=== PATIENT | female | born 1960 | race Caucasian/White ===

== ENCOUNTER 2017-03-29 23:52 | Emergency (ER) | payer OTHER ==
[~2017-03-29] VITALS: Ht 170.2 cm; Wt 114.8 kg
[2017-03-30 00:24] VITALS: BP_SYST 155
[2017-03-30] MEDS ORDERED: GLIP10TA74 PO (00:58)
[2017-03-30] MEDS ORDERED: ASPI-1063 PO (00:59)
[2017-03-30] MEDS ORDERED: METF1000 PO ×2 (01:00→01:01)
[2017-03-30] MEDS ORDERED: NIAC1CAP PO (01:02)
[2017-03-30] MEDS ORDERED: OMEG10006 PO (01:03)
[2017-03-30] MEDS ORDERED: SIMV40TA5 PO (01:04)
[2017-03-30] MEDS ORDERED: CHOL500013 PO (01:04)
[2017-03-30] MEDS ORDERED: DULA0.75 SQ (01:05)
[2017-03-30] MEDS ORDERED: NACL 0.9% 1,000 ML IV ONE (01:19)
[2017-03-30] MEDS ORDERED: ONDANSETRON HCL 4 MG/2 ML VIAL IVP ONE (01:30)
[2017-03-30 01:46] LABS: BASOPHILS # (AUTO) 0.1 K/uL (0.0-0.2); BASOPHILS % (AUTO) 0.9 % (0.0-2.0); EOSINOPHILS # (AUTO) 0.3 K/uL (0.0-0.4); EOSINOPHILS % (AUTO) 5.1 % (0.0-4.0); HEMATOCRIT 35.3 % (36-48); HEMOGLOBIN 12.2 g/dL (12.0-16.0); LYMPHOCYTES # (AUTO) 1.5 K/uL (1.0-5.5); LYMPHOCYTES % (AUTO) 22.1 % (20.5-51.5); MEAN CORPUSCULAR HEMOGLOBIN 31 pg (27-31); MEAN CORPUSCULAR HGB CONC 35 % (32-36); MEAN CORPUSCULAR VOLUME 90 fL (79.0-98.0); MONOCYTES # (AUTO) 0.6 K/uL (0.0-1.0); MONOCYTES % (AUTO) 8.8 % (1.7-9.3); NEUTROPHILS # (AUTO) 4.2 K/uL (1.8-7.7); NEUTROPHILS % (AUTO) 63.1 % (40.0-70.0); PLATELET COUNT (AUTO) 224 K/uL (130-430); RED BLOOD CELL COUNT(AUTO) 3.94 MIL/uL (4.2-6.2); RED CELL DISTRIBUTION WIDTH 13.2 % (9.0-15.0); WHITE BLOOD COUNT (AUTO) 6.7 K/uL (4.8-10.8)
[2017-03-30 01:50] LABS: CALCIUM 10.4 mg/dL (8.4-11.0); CREATININE 1.5 mg/dL (0.55-1.30); POTASSIUM 4.2 mmol/L (3.5-5.1)
[2017-03-30 01:59] LABS: ALBUMIN 3.4 g/dL (3.4-4.8); BILIRUBIN,URINE NEGATIVE (NEGATIVE); BLOOD, URINE NEGATIVE (NEGATIVE); CLARITY/URINE CLEAR (CLEAR); COLOR,URINE YELLOW (YELLOW); GLUCOSE,URINE 3+ (NEGATIVE); KETONES,URINE NEGATIVE (NEGATIVE); LEUKOCYTE ESTERASE ,URINE NEGATIVE (NEGATIVE); NITRITE, URINE POSITIVE (NEGATIVE); PH,URINE 5.5 (5.0-8.0); PROTEIN URINE NEGATIVE (NEGATIVE); TOTAL BILIRUBIN 0.7 mg/dL (0.0-1.0); UROBILINOGEN,URINE 0.2 (0.2-1.0)
[2017-03-30 02:05] LABS: BACTERIA,URINE MANY /HPF (None Seen); MUCUS,URINE None Seen /LPF (None Seen); RBC,URINE 0-3 /HPF (0-3); WBC,URINE 20-50 /HPF (0-3)
[2017-03-30] MEDS ORDERED: SULFAMETHOXAZOLE/TRIMETHOPR DS 1 TABLET PO ONE (03:15)
[2017-03-30 03:28] VITALS: BP_SYST 132
== END 2017-03-30 03:28 | disposition home or self-care (01) ==
LOC: SED 23:52
DX: R10.9 Unspecified abdominal pain (principal); R11.0 Nausea; R63.0 Anorexia; E11.9 Type 2 diabetes mellitus without complications; I10 Essential (primary) hypertension; J45.909 Unspecified asthma, uncomplicated; E78.5 Hyperlipidemia, unspecified; Z85.528 Personal history of other malignant neoplasm of kidney; Z79.899 Other long term (current) drug therapy
CPT/HCPCS: 36415; 74176; 80053; 81000; 83690; 85025; 87086; 87186; 93005; 96361; 96374; 99285; J2405; J7030

== ENCOUNTER 2017-11-19 02:43 | Emergency (ER) | payer OTHER ==
[~2017-11-19] VITALS: Ht 170.2 cm; Wt 111.1 kg
[2017-11-19 02:43] VITALS: BP_SYST 132
[~2017-11-19 02:43] MED LIST: ASPI-1063 PO; CHOL500013 PO; CIPR-172 PO; GLIP10TA74 PO; NIAC1CAP PO; OMEG10006 PO; SIMV40TA5 PO
[2017-11-19 03:38] LABS: BASOPHILS # (AUTO) 0.1 K/uL (0.0-0.2); EOSINOPHILS # (AUTO) 0.3 K/uL (0.0-0.4); EOSINOPHILS % (AUTO) 3.2 % (0.0-4.0); HEMATOCRIT 33.8 % (36-48); HEMOGLOBIN 11.3 g/dL (12.0-16.0); LYMPHOCYTES % (AUTO) 29.4 % (20.5-51.5); MEAN CORPUSCULAR HEMOGLOBIN 31 pg (27-31); MEAN CORPUSCULAR HGB CONC 34 % (32-36); MEAN CORPUSCULAR VOLUME 92 fL (79.0-98.0); MONOCYTES # (AUTO) 0.7 K/uL (0.0-1.0); MONOCYTES % (AUTO) 6.5 % (1.7-9.3); NEUTROPHILS # (AUTO) 6.3 K/uL (1.8-7.7); NEUTROPHILS % (AUTO) 59.9 % (40.0-70.0); PLATELET COUNT (AUTO) 292 K/uL (130-430); RED BLOOD CELL COUNT(AUTO) 3.66 MIL/uL (4.2-6.2); RED CELL DISTRIBUTION WIDTH 12.9 % (9.0-15.0); WHITE BLOOD COUNT (AUTO) 10.4 K/uL (4.8-10.8)
[2017-11-19 03:50] LABS: BILIRUBIN,URINE 1+ (NEGATIVE); BLOOD, URINE NEGATIVE (NEGATIVE); CLARITY/URINE CLEAR (CLEAR); COLOR,URINE YELLOW (YELLOW); GLUCOSE,URINE 1+ (NEGATIVE); KETONES,URINE NEGATIVE (NEGATIVE); LEUKOCYTE ESTERASE ,URINE NEGATIVE (NEGATIVE); NITRITE, URINE NEGATIVE (NEGATIVE); PROTEIN URINE 1+ (NEGATIVE); UROBILINOGEN,URINE 0.2 (0.2-1.0)
[2017-11-19 03:52] LABS: CALCIUM 9.8 mg/dL (8.4-11.0); CREATININE 2.61 mg/dL (0.55-1.30); POTASSIUM 3.3 mmol/L (3.5-5.1)
[2017-11-19 03:54] LABS: BACTERIA,URINE FEW /HPF (None Seen); MUCUS,URINE None Seen /LPF (None Seen); RBC,URINE 0-3 /HPF (0-3)
[2017-11-19 03:57] LABS: ALBUMIN 3.8 g/dL (3.4-4.8); TOTAL BILIRUBIN 0.8 mg/dL (0.0-1.0)
[2017-11-19] MEDS ORDERED: POTASSIUM CHLORIDE 20 MEQ/PKT PACKET PO ONE (04:30)
[2017-11-19] MEDS ORDERED: LACTULOSE 20 GM/30 ML UDC PO ONE (05:30)
[2017-11-19 05:45] VITALS: BP_SYST 127
== END 2017-11-19 05:45 | disposition home or self-care (01) ==
LOC: SED 02:43
DX: K59.00 Constipation, unspecified (principal); E87.6 Hypokalemia; I12.0 Hypertensive chronic kidney disease with stage 5 chronic kidney disease or end stage renal disease; E11.22 Type 2 diabetes mellitus with diabetic chronic kidney disease; N18.6 End stage renal disease; J45.909 Unspecified asthma, uncomplicated; E78.5 Hyperlipidemia, unspecified; Z85.53 Personal history of malignant neoplasm of renal pelvis; Z99.2 Dependence on renal dialysis; Z90.5 Acquired absence of kidney
CPT/HCPCS: 36415; 74018; 80053; 81000-TC; 85025; 99285

== ENCOUNTER 2017-12-03 07:50 | Inpatient (IN) | payer OTHER ==
[~2017-12-03] VITALS: Ht 170.2 cm; Wt 109.8 kg
[2017-12-03 07:55] VITALS: BP_SYST 94
[2017-12-03] MEDS ORDERED: LISI40TA4 PO (08:06)
[2017-12-03] MEDS ORDERED: GABA-531 PO (08:06)
[2017-12-03] MEDS ORDERED: ACETAMINOPHEN 500 MG TABLET PO ONE (08:15)
[2017-12-03] MEDS ORDERED: LEVOFLOXACIN 500 MG/D5W 100 ML IV ONE (08:15)
[2017-12-03] MEDS ORDERED: IBUP-1969 PO (08:17)
[2017-12-03] MEDS ORDERED: TRAM50TA92 PO (08:17)
[2017-12-03] MEDS ORDERED: ALBU8.5H8 INH (08:17)
[2017-12-03] MEDS ORDERED: ONDA4TAB5 PO (08:17)
[2017-12-03] MEDS ORDERED: CYCL-365 PO (08:17)
[2017-12-03] MEDS ORDERED: DET2 PO (08:17)
[2017-12-03] MEDS ORDERED: INSU300I SQ (08:18)
[2017-12-03 08:31] LABS: BASOPHILS # (AUTO) 0.1 K/uL (0.0-0.2); BASOPHILS % (AUTO) 1.5 % (0.0-2.0); HEMATOCRIT 30.6 % (36-48); HEMOGLOBIN 10.2 g/dL (12.0-16.0); LYMPHOCYTES # (AUTO) 0.3 K/uL (1.0-5.5); LYMPHOCYTES % (AUTO) 4.1 % (20.5-51.5); MEAN CORPUSCULAR HEMOGLOBIN 31 pg (27-31); MEAN CORPUSCULAR HGB CONC 33 % (32-36); MEAN CORPUSCULAR VOLUME 91 fL (79.0-98.0); MONOCYTES # (AUTO) 0.3 K/uL (0.0-1.0); MONOCYTES % (AUTO) 3.4 % (1.7-9.3); NEUTROPHILS # (AUTO) 7.1 K/uL (1.8-7.7); PLATELET COUNT (AUTO) 159 K/uL (130-430); RED BLOOD CELL COUNT(AUTO) 3.35 MIL/uL (4.2-6.2); RED CELL DISTRIBUTION WIDTH 13.7 % (9.0-15.0); WHITE BLOOD COUNT (AUTO) 7.8 K/uL (4.8-10.8)
[2017-12-03 08:37] LABS: ANION GAP 12 (5-15); CALCIUM 8.7 mg/dL (8.4-11.0); CHLORIDE 93 mmol/L (98-107); CREATININE 1.98 mg/dL (0.55-1.30); GLUCOSE 355 mg/dL (70-99); INR 1.2 (0.8-1.2); POTASSIUM 3.3 mmol/L (3.5-5.1); PROTHROMBIN TIME 11.8 SECS (9.5-12.5); SODIUM SERUM 129 mmol/L (136-145); UREA NITROGEN, BLOOD 19 mg/dL (8-21)
[2017-12-03 08:39] LABS: GFR AFRICAN AMERICAN 33 mL/min (>90)
[2017-12-03 08:53] LABS: ALANINE AMINOTRANSFERASE 28 U/L (12-78); ALBUMIN 2.9 g/dL (3.4-4.8); ASPARTATE AMINOTRANSFERASE 46 U/L (10-37); FREE T4 (FREE THYROXINE) 1.5 ng/dL (0.6-1.6); TOTAL BILIRUBIN 1.7 mg/dL (0.0-1.0)
[2017-12-03 08:54] LABS: ALCOHOL, BLOOD < 3 mg/dL (<10)
[2017-12-03 09:18] LABS: BILIRUBIN,URINE NEGATIVE (NEGATIVE); CLARITY/URINE CLEAR (CLEAR); COLOR,URINE YELLOW (YELLOW); GLUCOSE,URINE 2+ (NEGATIVE); KETONES,URINE NEGATIVE (NEGATIVE); LEUKOCYTE ESTERASE ,URINE NEGATIVE (NEGATIVE); NITRITE, URINE NEGATIVE (NEGATIVE); PH,URINE 6.5 (5.0-8.0); PROTEIN URINE 2+ (NEGATIVE)
[2017-12-03 09:21] LABS: BLOOD, URINE TRACE (NEGATIVE)
[2017-12-03 09:27] LABS: BACTERIA,URINE FEW /HPF (None Seen); MUCUS,URINE 1+ /LPF (None Seen); RBC,URINE 0-3 /HPF (0-3); WBC,URINE 0-3 /HPF (0-3)
[2017-12-03 09:36] LABS: BARBITURATE, URINE NEGATIVE (NEG <=200); BENZODIAZEPINE, URINE NEGATIVE (NEG <=150); CANNABINOID, URINE NEGATIVE (NEG <=50); COCAINE, URINE NEGATIVE (NEG <=150); METHAMPHETAMINES SCREEN,URINE NEGATIVE (NEG <=500); OPIATE, URINE NEGATIVE (NEG <=100); PHENCYCLIDINE SCREEN,URINE NEGATIVE (NEG <=25); UR TRICYCLIC ANTIDEPRESSANTS NEGATIVE (NEG <=300); URINE AMPHETAMINE NEGATIVE (NEG <=500); URINE METHADONE NEGATIVE (NEG <=200); URINE OXYCODONE SCREEN NEGATIVE (NEG <=100); URINE PROPOXYPHENE SCREEN NEGATIVE (NEG <=300)
[2017-12-03] MEDS ORDERED: POTASSIUM CHLORIDE 20 MEQ TAB.PRT.SR PO ONE (09:45)
[2017-12-03] MEDS ORDERED: cefTRIAXone 1 GM IVPB PREMIX 50 ML IV ONE (10:15)
[2017-12-03] MEDS ORDERED: VANCOMYCIN HCL 1,000 MG in NS 250 ML IV ONE (10:15)
[2017-12-03] MEDS ORDERED: ACETAMINOPHEN 325 MG TABLET PO ONE (10:15)
[2017-12-03 11:00] VITALS: BP_SYST 99
[2017-12-03] MEDS ORDERED: FLUT16SP16 NS (12:17)
[2017-12-03] MEDS: MORPHINE 4 MG/ML INJ. SYRINGE IVP PRN ×3 (12:26→23:45)
[2017-12-03] MEDS ORDERED: FLUTICASONE PROPIONATE 50 mCg/SPRAY 16 GM NS ONE (13:00)
[2017-12-03] MEDS ORDERED: NIACIN 500 MG TABLET.SA PO ONE (13:00)
[2017-12-03 16:13] VITALS: BP_SYST 103
[2017-12-03] MEDS: INSULIN ASPART 100 UNITS/ML, 10 ML VIAL (NovoLOG) SUBCUT PRN ×2 (18:26→22:16)
[2017-12-03] MEDS ORDERED: DEXTROSE 50%-WATER 50 ML DISP.SYRIN IVP PRN ×2 (18:30)
[2017-12-03] MEDS ORDERED: GLUCOSE 15 GM GEL (in 37.5 GM TUBE) PO PRN ×2 (18:30)
[2017-12-03 19:10] VITALS: BP_SYST 115
[2017-12-03] MEDS: ONDANSETRON 4 MG ODT TAB PO PRN (19:36)
[2017-12-03] MEDS ORDERED: INSULIN GLARGINE HUM REC ANLOG 75 UNIT SQ SCH (21:00)
[2017-12-03] MEDS: SIMVASTATIN 40 MG TABLET PO SCH (22:14)
[2017-12-03] MEDS: ASPIRIN 81 MG TABLET(ECOTRIN) PO SCH (22:14)
[2017-12-04 00:50] VITALS: BP_SYST 101
[2017-12-04] MEDS: INSULIN ASPART 100 UNITS/ML, 10 ML VIAL (NovoLOG) SUBCUT PRN ×4 (06:04→22:28)
[2017-12-04] MEDS: MORPHINE 4 MG/ML INJ. SYRINGE IVP PRN ×4 (06:05→20:14)
[2017-12-04 07:07] LABS: BASOPHILS % (AUTO) 0.5 % (0.0-2.0); EOSINOPHILS % (AUTO) 0.7 % (0.0-4.0); HEMOGLOBIN 8.8 g/dL (12.0-16.0); LYMPHOCYTES # (AUTO) 0.6 K/uL (1.0-5.5); LYMPHOCYTES % (AUTO) 11.6 % (20.5-51.5); MEAN CORPUSCULAR HEMOGLOBIN 32 pg (27-31); MEAN CORPUSCULAR HGB CONC 34 % (32-36); MEAN CORPUSCULAR VOLUME 94 fL (79.0-98.0); MONOCYTES # (AUTO) 0.3 K/uL (0.0-1.0); MONOCYTES % (AUTO) 6.5 % (1.7-9.3); NEUTROPHILS # (AUTO) 4.1 K/uL (1.8-7.7); NEUTROPHILS % (AUTO) 80.7 % (40.0-70.0); PLATELET COUNT (AUTO) 113 K/uL (130-430); RED BLOOD CELL COUNT(AUTO) 2.77 MIL/uL (4.2-6.2); RED CELL DISTRIBUTION WIDTH 13.5 % (9.0-15.0)
[2017-12-04 07:23] LABS: ALBUMIN 2.4 g/dL (3.4-4.8); CALCIUM 8.3 mg/dL (8.4-11.0); CREATININE 2.01 mg/dL (0.55-1.30); POTASSIUM 3.6 mmol/L (3.5-5.1); TOTAL BILIRUBIN 0.9 mg/dL (0.0-1.0)
[2017-12-04 08:11] VITALS: BP_SYST 117
[2017-12-04] MEDS: NIACIN 500 MG TABLET.SA PO SCH (08:18)
[2017-12-04] MEDS: FLUTICASONE PROPIONATE 50 mCg/SPRAY 16 GM NS SCH (08:19)
[2017-12-04] MEDS: ONDANSETRON 4 MG ODT TAB PO PRN (10:58)
[2017-12-04 11:31] VITALS: BP_SYST 112
[2017-12-04] MEDS ORDERED: VANCOMYCIN HCL 1,250 MG in NS 250 ML IV SCH (14:00)
[2017-12-04 15:38] VITALS: BP_SYST 119
[2017-12-04] MEDS ORDERED: *CUBICIN 6 MG/KG Q48H/PHARMACY XX PRN (17:30)
[2017-12-04 20:00] VITALS: BP_SYST 105
[2017-12-04] MEDS: ASPIRIN 81 MG TABLET(ECOTRIN) PO SCH (21:41)
[2017-12-04] MEDS: SIMVASTATIN 40 MG TABLET PO SCH (21:41)
[2017-12-04] MEDS: DAPTOmycin 650 MG in NS 50 ML IV SCH (21:42)
[2017-12-05 00:08] VITALS: BP_SYST 100
[2017-12-05 07:10] LABS: CALCIUM 8.8 mg/dL (8.4-11.0); CREATININE 1.82 mg/dL (0.55-1.30); POTASSIUM 3.2 mmol/L (3.5-5.1)
[2017-12-05] MEDS: NIACIN 500 MG TABLET.SA PO SCH (08:24)
[2017-12-05] MEDS: FLUTICASONE PROPIONATE 50 mCg/SPRAY 16 GM NS SCH (08:25)
[2017-12-05 08:30] VITALS: BP_SYST 107
[2017-12-05] MEDS: MORPHINE 4 MG/ML INJ. SYRINGE IVP PRN (09:01)
[2017-12-05 12:02] VITALS: BP_SYST 109
[2017-12-05] MEDS ORDERED: LR 1,000 ML IV.SOLN IV ONE (16:30)
[2017-12-05] MEDS ORDERED: PROPOFOL 200MG/ 20ML VIAL (DIPRIVAN) IV ONE (16:30)
[2017-12-05] MEDS ORDERED: MIDAZOLAM HCL 5 MG/ML VIAL (VERSED) IV ONE (16:30)
[2017-12-05] MEDS ORDERED: LIDOCAINE 1% 10 MG/ML, 20 ML MDV INJ ONE (16:30)
[2017-12-05] MEDS ORDERED: NS IRRIG SOLN 1000 ML IR ONE (16:30)
[2017-12-05] MEDS ORDERED: fentaNYL CITRATE/PF 100 MCG/2 ML AMP IVP PRN ×2 (17:00)
[2017-12-05 17:36] VITALS: BP_SYST 109
[2017-12-05 19:40] VITALS: BP_SYST 99
[2017-12-05 20:13] VITALS: BP_SYST 116
[2017-12-05] MEDS: HYDROcodone/ACETAMIN 5-325 MG TAB (NORCO/ VICODIN) PO PRN (20:24)
[2017-12-05] MEDS: SIMVASTATIN 40 MG TABLET PO SCH (21:42)
[2017-12-05] MEDS: ASPIRIN 81 MG TABLET(ECOTRIN) PO SCH (21:42)
[2017-12-05] MEDS: INSULIN ASPART 100 UNITS/ML, 10 ML VIAL (NovoLOG) SUBCUT PRN (21:51)
[2017-12-06 00:13] VITALS: BP_SYST 111
[2017-12-06 07:35] LABS: CALCIUM 9.1 mg/dL (8.4-11.0); CREATININE 1.52 mg/dL (0.55-1.30); POTASSIUM 3.4 mmol/L (3.5-5.1)
[2017-12-06 08:17] VITALS: BP_SYST 131
[2017-12-06] MEDS: FLUTICASONE PROPIONATE 50 mCg/SPRAY 16 GM NS SCH (08:22)
[2017-12-06] MEDS: NIACIN 500 MG TABLET.SA PO SCH (08:23)
[2017-12-06] MEDS: HYDROcodone/ACETAMIN 5-325 MG TAB (NORCO/ VICODIN) PO PRN (08:24)
[2017-12-06] MEDS: INSULIN ASPART 100 UNITS/ML, 10 ML VIAL (NovoLOG) SUBCUT PRN ×3 (11:45→21:09)
[2017-12-06 12:30] VITALS: BP_SYST 108
[2017-12-06 16:06] VITALS: BP_SYST 110
[2017-12-06] MEDS: DAPTOmycin 650 MG in NS 50 ML IV SCH (21:00)
[2017-12-06] MEDS: SIMVASTATIN 40 MG TABLET PO SCH (21:04)
[2017-12-06] MEDS: ASPIRIN 81 MG TABLET(ECOTRIN) PO SCH (21:05)
[2017-12-06 23:24] VITALS: BP_SYST 125
[2017-12-07 00:38] VITALS: BP_SYST 118
[2017-12-07] MEDS: INSULIN ASPART 100 UNITS/ML, 10 ML VIAL (NovoLOG) SUBCUT PRN ×2 (06:03→17:41)
[2017-12-07 07:08] LABS: CALCIUM 9.3 mg/dL (8.4-11.0); CREATININE 1.43 mg/dL (0.55-1.30); POTASSIUM 3.5 mmol/L (3.5-5.1)
[2017-12-07 08:00] VITALS: BP_SYST 126
[2017-12-07] MEDS: NIACIN 500 MG TABLET.SA PO SCH (08:13)
[2017-12-07] MEDS: FLUTICASONE PROPIONATE 50 mCg/SPRAY 16 GM NS SCH (08:14)
[2017-12-07] MEDS ORDERED: LACTULOSE 20 GM/30 ML UDC PO PRN (09:00)
[2017-12-07] MEDS ORDERED: BISACODYL 5 MG TABLET.DR (DULCOLAX) PO PRN (09:00)
[2017-12-07] MEDS ORDERED: MAGNESIUM CITRATE 300 ML ORAL SOLUTION PO ONE (11:00)
[2017-12-07] MEDS: HYDROcodone/ACETAMIN 5-325 MG TAB (NORCO/ VICODIN) PO PRN (12:20)
[2017-12-07 12:43] VITALS: BP_SYST 139
[2017-12-07 16:00] VITALS: BP_SYST 114
[2017-12-07] MEDS ORDERED: VANCOMYCIN HCL 1 GM/NS PREMIX 250 ML IV SCH (17:30)
[2017-12-07 19:50] VITALS: BP_SYST 111
[2017-12-07 20:41] VITALS: BP_SYST 111
== END 2017-12-07 21:10 | disposition home or self-care (01) | DRG 314 ==
LOC: SED 07:50 → STU 10:05 → SMU 12-07 11:35
PROVIDERS: ADMIT Internal Medicine Hospice and Palliative Medicine; ATTEND Internal Medicine Hospice and Palliative Medicine
PROC: 02PYX3Z Removal of Infusion Device from Great Vessel, External Approach (ICD-10-PCS; principal; 2017-12-05 14:30)
DX: T80.211A Bloodstream infection due to central venous catheter, initial encounter (principal); N18.6 End stage renal disease; A41.02 Sepsis due to Methicillin resistant Staphylococcus aureus; I12.0 Hypertensive chronic kidney disease with stage 5 chronic kidney disease or end stage renal disease; E11.22 Type 2 diabetes mellitus with diabetic chronic kidney disease; N17.9 Acute kidney failure, unspecified; N12 Tubulo-interstitial nephritis, not specified as acute or chronic; W19.XXXA Unspecified fall, initial encounter; M25.562 Pain in left knee; M25.561 Pain in right knee; E78.5 Hyperlipidemia, unspecified; J45.909 Unspecified asthma, uncomplicated; Y84.8 Other medical procedures as the cause of abnormal reaction of the patient, or of later complication, without mention of misadventure at the time of the procedure; E66.9 Obesity, unspecified; Z68.37 Body mass index [BMI] 37.0-37.9, adult; Z99.2 Dependence on renal dialysis; Z90.5 Acquired absence of kidney; Z85.528 Personal history of other malignant neoplasm of kidney; Z79.899 Other long term (current) drug therapy; Z90.49 Acquired absence of other specified parts of digestive tract; Y93.89 Activity, other specified; Y92.098 Other place in other non-institutional residence as the place of occurrence of the external cause; Y99.8 Other external cause status
CPT/HCPCS: 36415; 71045; 74018; 80048; 80053; 80307; 81000-TC; 82140-TC; 82948; 82962; 83605; 83880; 84439; 84484; 85025; 85610-TC; 87040-TC; 87070-TC; 87081; 87086; 87186-TC; 93005; 94760; 96365; 99285; G0482; J0696; J0878; J1815; J1956; J2001; J2250; J2270; J2704; J3370; J7030; J7050; J7120; Q0162

== ENCOUNTER 2019-04-02 20:38 | Inpatient (IN) | payer BC, OTHER ==
[~2019-04-02] VITALS: Ht 170.2 cm; Wt 105.8 kg
[~2019-04-02 20:38] MED LIST changes: -ASPI-1063 PO; +ASPI-1153 PO; -CHOL500013 PO; -CIPR-172 PO; +FLUT16SP16 NS; +GLIP10TA3 PO; -GLIP10TA74 PO; +INSU300I SQ; -OMEG10006 PO; +ONDA4TAB5 PO
--- NOTE | 2019-04-02 20:40 | NUR ---
Placed in room 07 . Placed on front desk monitor, blood pressure machine and pulse oximeter. To gown for exam. Side rails up. Report given to Maribell REYNOLDS.
[2019-04-02 20:51] VITALS: BP_SYST 141
--- NOTE | 2019-04-02 20:55 | NUR ---
PT IS AAOX4 AND ABLE TO VERBALIZE NEEDS. PT IS BREATHING HEAVILY AND HAVING DIFFICULTY, 2L NC PLACED BY TRIAGE NURSE. PER PT SHE STARTED HAVING SOB EARLIER TODAY ACCOMPANIED BY L SIDED FLANK PAIN. PT DENIES ANY CP AT THIS TIME. PER PT SHE HAS ALSO BEEN EXPERIENCING N/V/D FOR THE PAST MONTH WHICH SHE HAS SEEN PER FIELD STAFF FOR. RT AT BEDSIDE TO ADMINISTER BREATHING TX. WILL CONTINUE TO MONITOR PT.
--- NOTE | 2019-04-02 20:59 | NUR ---
ER Dr. Baptiste at bedside examining patient.
[2019-04-02] MEDS ORDERED: IPRATROPIUM/ALBUTEROL SULFATE 3 ML AMPUL.NEB (DUONEB) INH ONE (21:00)
--- NOTE | 2019-04-02 21:10 | NUR ---
Respiratory at bedside for breathing tx
[2019-04-02 21:35] LABS: BASOPHILS # (AUTO) 0.1 K/uL (0.0-0.2); BASOPHILS % (AUTO) 1.5 % (0.0-2.0); EOSINOPHILS # (AUTO) 0.3 K/uL (0.0-0.4); EOSINOPHILS % (AUTO) 4.3 % (0.0-4.0); HEMATOCRIT 40.2 % (36-48); HEMOGLOBIN 13.5 g/dL (12.0-16.0); LYMPHOCYTES # (AUTO) 1.6 K/uL (1.0-5.5); LYMPHOCYTES % (AUTO) 22.7 % (20.5-51.5); MEAN CORPUSCULAR HEMOGLOBIN 30 pg (27-31); MEAN CORPUSCULAR HGB CONC 34 % (32-36); MEAN CORPUSCULAR VOLUME 90 fL (79.0-98.0); MONOCYTES # (AUTO) 0.5 K/uL (0.0-1.0); MONOCYTES % (AUTO) 7.4 % (1.7-9.3); NEUTROPHILS # (AUTO) 4.7 K/uL (1.8-7.7); NEUTROPHILS % (AUTO) 64.1 % (40.0-70.0); PLATELET COUNT (AUTO) 278 K/uL (130-430); RED BLOOD CELL COUNT(AUTO) 4.45 MIL/uL (4.2-6.2); RED CELL DISTRIBUTION WIDTH 15.3 % (9.0-15.0); WHITE BLOOD COUNT (AUTO) 7.3 K/uL (4.8-10.8)
[2019-04-02 21:49] LABS: CALCIUM 9.8 mg/dL (8.4-11.0); CREATININE 1.22 mg/dL (0.55-1.30); POTASSIUM 4.3 mmol/L (3.5-5.1)
[2019-04-02 21:53] LABS: INR 0.9 (0.8-1.2); PROTHROMBIN TIME 9.5 SECS (9.5-12.5)
[2019-04-02 21:55] LABS: ALBUMIN 3.5 g/dL (3.4-4.8)
--- NOTE | 2019-04-02 22:14 | NUR ---
PT STATES BREATHING IS "A LOT BETTER" AT THIS TIME. NO S/S OF DISTRESS NOTED. WILL CONTINUE TO MONITOR PT.
[2019-04-02] MEDS ORDERED: NACL 0.9% 1,000 ML IV ONE (22:45)
[2019-04-02] MEDS ORDERED: DOXYCYCLINE HYCLATE 100 MG CAPSULE PO ONE (22:45)
--- NOTE | 2019-04-02 22:45 | NUR ---
US TECH AT BEDSIDE PERFORMING VENOUS DOPPLER OF BILATERAL LOWER EXTREMITIES.
[2019-04-02] MEDS ORDERED: AMLO5TAB4 PO (23:07)
[2019-04-02] MEDS ORDERED: OMEG-143 PO (23:07)
[2019-04-02] MEDS ORDERED: NIAC500T2 PO (23:07)
[2019-04-02] MEDS ORDERED: GABA-531 PO (23:07)
[2019-04-02] MEDS ORDERED: INSU100I12 SQ (23:07)
[2019-04-02] MEDS ORDERED: RANI150T8 PO (23:07)
[2019-04-02] MEDS ORDERED: VITD2000 PO (23:07)
[2019-04-02] MEDS ORDERED: METF1000 PO (23:07)
[2019-04-02] MEDS ORDERED: LACT10SO6 PO (23:07)
--- NOTE | 2019-04-02 23:08 | NUR ---
Medication reconciliation completed with information provided by PT. Any prior medication reconciliation on file was reviewed and corrected.
[2019-04-02] MEDS ORDERED: DOXYCYCLINE HYCLATE 100 MG CAPSULE ONE (23:12)
--- NOTE | 2019-04-02 23:30 | NUR ---
IV # 20 gauge angiocath placed to RAC. Use of asceptic technique. Opsite placed over site. Blood return noted. Blood for lab drawn from site. Flushed with 10 cc of normal saline. No evidence of infiltration noted. Patient tolerated well.
--- NOTE | 2019-04-02 23:52 | NUR ---
PT TO CT VIA [facility] ACCOMPANIED BY [employer] AT THIS TIME.
--- NOTE | 2019-04-03 00:01 | NUR ---
PT RETURNED FROM CT VIA [facility] IN STABLE CONDITION
[2019-04-03 00:45] LABS: BILIRUBIN,URINE NEGATIVE (NEGATIVE); BLOOD, URINE 1+ (NEGATIVE); CLARITY/URINE CLEAR (CLEAR); COLOR,URINE YELLOW (YELLOW); GLUCOSE,URINE NEGATIVE (NEGATIVE); KETONES,URINE TRACE (NEGATIVE); LEUKOCYTE ESTERASE ,URINE 2+ (NEGATIVE); NITRITE, URINE POSITIVE (NEGATIVE); PH,URINE 5.5 (5.0-8.0); PROTEIN URINE 1+ (NEGATIVE); UROBILINOGEN,URINE 0.2 (0.2-1.0)
--- NOTE | 2019-04-03 00:46 | NUR ---
ADMISSION ORDERS FOR TELEMETRY RECEIVED FROM DR. ZAMBRANO AT THIS TIME. AWAITING TELE BED PLACEMENT.
[2019-04-03 00:51] LABS: BACTERIA,URINE MANY /HPF (None Seen); MUCUS,URINE 2+ /LPF (None Seen); WBC,URINE >100 /HPF (0-3); YEAST,URINE Moderate /HPF (None Seen)
--- NOTE | 2019-04-03 01:10 | NUR ---
PT STATES SHE IS HUNGRY AT THIS TIME. PER DR. ZAMBRANO PT IS ON A REGULAR DIET, FOOD PLATE GIVEN.
--- NOTE | 2019-04-03 01:17 | NUR ---
TELE BED RECEIVED AT THIS TIME. PT WILL GO TO ROOM 106A.
--- NOTE | 2019-04-03 01:26 | NUR ---
ADMISSION: The patient, JACINTA ANDERSON, 58 y/o, F admitted by JANIYA MARTINEZ MD, was given written information regarding hospital policies, unit procedures and contact persons.
--- NOTE | 2019-04-03 01:26 | NUR ---
Patient will be admitted to care of DR. MARTINEZ. Admitted to TELEMETRY unit. Will go to room 106A. Belongings list completed. Summary report printed. Report will be given at bedside.
[2019-04-03 01:30] VITALS: BP_SYST 150
[2019-04-03] MEDS: D5/0.45 NS 1,000 ML IV SCH ×3 (01:58→20:40)
--- NOTE | 2019-04-03 02:00 | NUR ---
IVF of D5 1/2NS is infusing well at 60ml/hr in RAC without any signs of infiltration. No respiratory distress noted. Oxygen is on at 2L/min per NC. Call light is with pt and bed is in the lowest and locked positions.
--- NOTE | 2019-04-03 04:00 | NUR ---
Pt is sleeping comfortably in bed. IVF is infusing well in RAC. Fall and safety precautions are in place. Call light is with pt and bed is in the lowest and locked positions.
--- NOTE | 2019-04-03 06:30 | NUR ---
Pt is awake and not in any distress. IVF is infusing well in RAC. Will endorse to day shift nurse.
[2019-04-03] MEDS ORDERED: ONDANSETRON 4 MG ODT TAB PO PRN (07:00)
[2019-04-03] MEDS ORDERED: D5W 1,000 ML IV PRN (07:02)
[2019-04-03] MEDS ORDERED: DEXTROSE 50% JECT 50 ML DISP.SYRIN IVP PRN (07:15)
[2019-04-03] MEDS ORDERED: GLUCOSE 15 GM GEL (in 37.5 GM TUBE) PO PRN (07:15)
[2019-04-03 08:42] VITALS: BP_SYST 134
--- NOTE | 2019-04-03 08:43 | NUR ---
OPENING NOTES: RECEIVED PATIENT FROM PLASTICS WORKER NURSE. PATIENT IS AWAKE SITTING UP IN BED. PATIENT DENIES ANY PAIN AT THE MOMENT. NO SIGNS OF DISTRESS OR SHORTNESS OF BREATH NOTED. PATIENT STATES SHE DOES FEEL NAUSEOUS. IV SITE PATENT WITH NO SIGNS OF INFILTRATION. SAFETY AND FALL PRECAUTIONS ARE IN PLACE. BED LOCKED IN LOWEST POSITION WITH CALL LIGHT IN REACH. WILL CONTINUE TO MONITOR PATIENT FOR ANY CHANGES.
[2019-04-03] MEDS: cefTRIAXone 1 GM IVPB PREMIX 50 ML IV SCH (08:51)
[2019-04-03] MEDS: CHOLECALCIFEROL (VITAMIN D3) 2,000 UNIT TABLET PO SCH (08:53)
[2019-04-03] MEDS: GABAPENTIN 300 MG CAPSULE PO SCH (08:54)
[2019-04-03] MEDS: PANTOPRAZOLE SODIUM 40 MG TAB PO SCH (08:54)
[2019-04-03] MEDS: amLODIPine BESYLATE 5 MG TABLET PO SCH (08:54)
[2019-04-03] MEDS: metFORMIN HCL 500 MG TABLET PO SCH ×2 (08:55→20:41)
[2019-04-03] MEDS ORDERED: NIACIN 500 MG TABLET.SA PO SCH (09:00)
[2019-04-03] MEDS ORDERED: NIACIN 500 MG CAPSULE.SA PO SCH (09:00)
[2019-04-03] MEDS ORDERED: AZITHROMYCIN 500 MG in NS 250 ML IV SCH (09:15)
--- NOTE | 2019-04-03 09:25 | NUR ---
MEDICATION REASSESSMENT: PATIENT IS NO LONGER FEELING NAUSEOUS AFTER ZOFRAN WAS GIVEN. WILL CONTINUE TO MONITOR PATIENT FOR ANY NAUSEA.
--- NOTE | 2019-04-03 10:05 | NUR ---
RN ROUNDS: PATIENT IS AWAKE IN BED. PATIENT DENIES ANY PAIN. NO SIGNS OF DISTRESS OR SHORTNESS OF BREATH NOTED. IV SITE REMOVED, NO LONGER PATENT. IV CATHETER INTACT WITH NO ACTIVE BLEEDING. WILL ATTEMPT TO REINSERT AN IV. SAFETY AND FALL PRECAUTIONS ARE IN PLACE. BED LOCKED IN LOWEST POSITION WITH CALL LIGHT IN REACH. WILL CONTINUE TO MONITOR PATIENT FOR ANY CHANGES.
--- NOTE | 2019-04-03 11:00 | NUR ---
IV REINSERTION: IV INSERT ON RIGHT HAND 22G. SUCCESSFUL AFTER 2 ATTEMPTS. PATIENT TOLERATED THE INSERTION. NO ACTIVE BLEEDING PRESENT. IV IS PATENT WITH NO SIGNS OF INFILTRATION.
[2019-04-03] MEDS: INSULIN LISPRO SLIDING SCALE 100 UNITS/ML VIAL (humaLOG) SUBCUT PRN ×3 (11:48→20:45)
[2019-04-03 12:00] VITALS: BP_SYST 125
--- NOTE | 2019-04-03 12:36 | NUR ---
RN ROUNDS: PATIENT IS AWAKE EATING LUNCH IN BED. NO SIGNS OF DISTRESS OR SHORTNESS OF BREATH NOTED. PATIENT DENIES ANY PAIN AT THE MOMENT. IV SITE IS PATENT WITH NO SIGNS OF INFILTRATION. SAFETY AND FALL PRECAUTIONS ARE IN PLACE. BED LOCKED IN LOWEST POSITION WITH CALL LIGHT IN REACH. WILL CONTINUE TO MONITOR PATIENT FOR ANY CHANGES.
[2019-04-03] MEDS: FLUCONAZOLE 100 mg/ NS 50 ML IV SCH (13:12)
--- NOTE | 2019-04-03 14:14 | NUR ---
RN ROUNDS: PATIENT IS SLEEPING IN BED. NO SIGNS OF DISTRESS OR SHORTNESS OF BREATH NOTED. IV SITE IS PATENT WITH NO SIGNS OF INFILTRATION. SAFETY AND FALL PRECAUTIONS ARE IN PLACE. BED LOCKED IN LOWEST POSITION WITH CALL LIGHT IN REACH. WILL CONTINUE TO MONITOR PATIENT FOR ANY CHANGES.
--- NOTE | 2019-04-03 16:15 | NUR ---
RN ROUNDS: PATIENT IS AWAKE IN BED WATCHING TELEVISION. FAMILY AT BEDSIDE. PATIENT DENIES ANY PAIN AT THE MOMENT. NO SIGNS OF DISTRESS OR SHORTNESS OF BREATH NOTED. IV SITE IS PATENT WITH NO SIGNS OF INFILTRATION. SAFETY AND FALL PRECAUTIONS ARE IN PLACE. BED LOCKED IN LOWEST POSITION WITH CALL LIGHT IN REACH. WILL CONTINUE TO MONITOR PATIENT FOR ANY CHANGES.
[2019-04-03 16:19] VITALS: BP_SYST 135
--- NOTE | 2019-04-03 18:44 | NUR ---
CLOSING NOTES: PATIENT IS SLEEPING IN BED. NO SIGNS OF DISTRESS OR SHORTNESS OF BREATH. PATIENT IS CURRENTLY ON ROOM AIR SATURATING AT 93% AND TOLERATING IT. PATIENT IS IS STABLE CONDITION. IV SITE IS PATENT WITH NO SIGNS OF INFILTRATION. SAFETY AND FALL PRECAUTIONS ARE IN PLACE. BED LOCKED IN LOWEST POSITION WITH CALL LIGHT IN REACH. WILL ENDORSE PATIENT TO ONCOMING FULL DECATOR OPERATOR NURSE.
[2019-04-03 20:15] VITALS: BP_SYST 137
[2019-04-03] MEDS: SIMVASTATIN 40 MG TABLET PO SCH (20:41)
--- NOTE | 2019-04-03 21:00 | NUR ---
Patient awake alert assist out of bed to Rest Room AMBULATES fall MEASURES intact procedures explained no SOB noted / .
--- NOTE | 2019-04-03 21:42 | NUR ---
BSG blood SUGAR @ 366 MG DL 10 UNITS of LISPRO insulin administer as ordered per sliding scale / .
--- NOTE | 2019-04-03 22:36 | NUR ---
Consultation Paged Reason for Consultation: Infection Was consult called: Y Person who was notified: Apoorva Consulting Physician: Dr. Mckenzie Furnace Hand Ordering Physician: Dr. Miner
--- NOTE | 2019-04-03 22:38 | NUR ---
Consultation Paged Reason for Consultation: Respiratory Distress Was consult called: Y Person who was notified: Apoorva Consulting Physician: Lizz Lee Clinical Trials Nurse Ordering Physician: Dr. Miner
[2019-04-04 00:50] VITALS: BP_SYST 132
--- NOTE | 2019-04-04 02:39 | NUR ---
Patient instructed Doctors orders for stool collection Hat placed in Rest Room for collection Patient alert & aware .
--- NOTE | 2019-04-04 05:05 | NUR ---
Hourly Rounding patient resting call lozoya with PT chest movement Remains symmetrical unlabored .
[2019-04-04] MEDS: INSULIN LISPRO SLIDING SCALE 100 UNITS/ML VIAL (humaLOG) SUBCUT PRN ×4 (05:41→21:24)
[2019-04-04 06:57] LABS: BASOPHILS # (AUTO) 0.1 K/uL (0.0-0.2); EOSINOPHILS # (AUTO) 0.3 K/uL (0.0-0.4); EOSINOPHILS % (AUTO) 5.5 % (0.0-4.0); HEMATOCRIT 35.4 % (36-48); HEMOGLOBIN 11.6 g/dL (12.0-16.0); LYMPHOCYTES # (AUTO) 1.1 K/uL (1.0-5.5); LYMPHOCYTES % (AUTO) 18.1 % (20.5-51.5); MEAN CORPUSCULAR HEMOGLOBIN 30 pg (27-31); MEAN CORPUSCULAR HGB CONC 33 % (32-36); MEAN CORPUSCULAR VOLUME 92 fL (79.0-98.0); MONOCYTES # (AUTO) 0.4 K/uL (0.0-1.0); MONOCYTES % (AUTO) 7.5 % (1.7-9.3); NEUTROPHILS % (AUTO) 67.9 % (40.0-70.0); PLATELET COUNT (AUTO) 218 K/uL (130-430); RED BLOOD CELL COUNT(AUTO) 3.85 MIL/uL (4.2-6.2); WHITE BLOOD COUNT (AUTO) 5.8 K/uL (4.8-10.8)
[2019-04-04 07:18] LABS: ALBUMIN 3.1 g/dL (3.4-4.8); CALCIUM 9.3 mg/dL (8.4-11.0); CREATININE 1.31 mg/dL (0.55-1.30); POTASSIUM 4.4 mmol/L (3.5-5.1); TOTAL BILIRUBIN 1.2 mg/dL (0.0-1.0)
--- NOTE | 2019-04-04 07:41 | NUR ---
AM rounds: Oriented x4. Denies any shortness of breath, denies any pain. Able to move right arm without difficulty. IV fluids of D5 1/2 NS at 60 cc/hr ont he right hand kristy 22, patent and intact. Call light within reach, encouraged to call for assist if needed.
[2019-04-04 07:43] VITALS: BP_SYST 128
[2019-04-04] MEDS: amLODIPine BESYLATE 5 MG TABLET PO SCH (08:57)
[2019-04-04] MEDS: GABAPENTIN 300 MG CAPSULE PO SCH (08:57)
[2019-04-04] MEDS: metFORMIN HCL 500 MG TABLET PO SCH ×2 (08:57→21:23)
[2019-04-04] MEDS: PANTOPRAZOLE SODIUM 40 MG TAB PO SCH (08:57)
[2019-04-04] MEDS: CHOLECALCIFEROL (VITAMIN D3) 2,000 UNIT TABLET PO SCH (08:58)
[2019-04-04] MEDS: cefTRIAXone 1 GM IVPB PREMIX 50 ML IV SCH (09:05)
--- NOTE | 2019-04-04 09:30 | NUR ---
IV start: IV started on the left hand with gauge 22, blood return noted on first attempt. Secured with tegaderm and tape. Removed old iv, no bleeding, covered with 2x2 dressing.
[2019-04-04] MEDS: NIACIN 500 MG TABLET.SA PO SCH (11:04)
[2019-04-04 11:43] VITALS: BP_SYST 133
--- NOTE | 2019-04-04 12:20 | NUR ---
Rounds: Denies pain. Patient is watching TV.
[2019-04-04] MEDS: FLUCONAZOLE 100 mg/ NS 50 ML IV SCH (13:18)
--- NOTE | 2019-04-04 15:00 | NUR ---
Rounds; Patient is resting. Denies any discomfort.
[2019-04-04 17:56] VITALS: BP_SYST 142
--- NOTE | 2019-04-04 18:23 | NUR ---
End of shift: Needs attended. No Change in assessment.
[2019-04-04 20:06] VITALS: BP_SYST 143
[2019-04-04] MEDS: SIMVASTATIN 40 MG TABLET PO SCH (21:23)
--- NOTE | 2019-04-04 22:15 | NUR ---
ASSIST Patient out of bed AMBULATES to Rest Room as needed no SOB on Room Air activity tolerate .
--- NOTE | 2019-04-05 | NUR ---
BSG BLOOD SUGAR GLUCOSE 289 mg dl SIX UNITS of HumaLog insulin sub q. administer per sliding scale continue to monitor .
[2019-04-05 00:12] VITALS: BP_SYST 129
--- NOTE | 2019-04-05 04:32 | NUR ---
Hourly Rounding patient awake on and off HOB elevated skin color wnl chest movement symmetrical call lozoya with patient .
--- NOTE | 2019-04-05 04:54 | NUR ---
Fall Precautions intact patient awake on & off call lozoya with PT bed to low position frequent visual monitor for safety / .
[2019-04-05 06:24] LABS: BASOPHILS # (AUTO) 0.1 K/uL (0.0-0.2); BASOPHILS % (AUTO) 1.5 % (0.0-2.0); EOSINOPHILS # (AUTO) 0.4 K/uL (0.0-0.4); EOSINOPHILS % (AUTO) 6.1 % (0.0-4.0); HEMATOCRIT 35.3 % (36-48); HEMOGLOBIN 11.8 g/dL (12.0-16.0); LYMPHOCYTES # (AUTO) 1.3 K/uL (1.0-5.5); LYMPHOCYTES % (AUTO) 20.8 % (20.5-51.5); MEAN CORPUSCULAR HEMOGLOBIN 31 pg (27-31); MEAN CORPUSCULAR HGB CONC 34 % (32-36); MEAN CORPUSCULAR VOLUME 91 fL (79.0-98.0); MONOCYTES # (AUTO) 0.6 K/uL (0.0-1.0); MONOCYTES % (AUTO) 8.6 % (1.7-9.3); PLATELET COUNT (AUTO) 228 K/uL (130-430); RED BLOOD CELL COUNT(AUTO) 3.88 MIL/uL (4.2-6.2); RED CELL DISTRIBUTION WIDTH 14.8 % (9.0-15.0); WHITE BLOOD COUNT (AUTO) 6.4 K/uL (4.8-10.8)
[2019-04-05] MEDS: INSULIN LISPRO SLIDING SCALE 100 UNITS/ML VIAL (humaLOG) SUBCUT PRN (06:35)
[2019-04-05 06:58] LABS: ALBUMIN 3.2 g/dL (3.4-4.8); CALCIUM 9.8 mg/dL (8.4-11.0); CREATININE 1.2 mg/dL (0.55-1.30); POTASSIUM 4.2 mmol/L (3.5-5.1); TOTAL BILIRUBIN 0.9 mg/dL (0.0-1.0)
[2019-04-05 07:50] VITALS: BP_SYST 142
--- NOTE | 2019-04-05 08:00 | NUR ---
OPENING NOTES, RECEIVED PT IN BED, PT IS AAOX4 , DENIES PAIN, NO CHEST PAIN, NO SOB, NO RESP DISTRESS. SAFETY PRECAUTION IN PLACEM, CALL LIGHT IN REACH, BED IN LOW POSITION. WILL CONT TO MONITOR.
[2019-04-05] MEDS ORDERED: GLIMEPIRIDE 2 MG TABLET PO ONE (08:45)
[2019-04-05] MEDS: PANTOPRAZOLE SODIUM 40 MG TAB PO SCH (09:19)
[2019-04-05] MEDS: GABAPENTIN 300 MG CAPSULE PO SCH (09:19)
[2019-04-05] MEDS: metFORMIN HCL 500 MG TABLET PO SCH (09:19)
[2019-04-05] MEDS: CHOLECALCIFEROL (VITAMIN D3) 2,000 UNIT TABLET PO SCH (09:19)
[2019-04-05] MEDS: cefTRIAXone 1 GM IVPB PREMIX 50 ML IV SCH (09:20)
[2019-04-05] MEDS: amLODIPine BESYLATE 5 MG TABLET PO SCH (09:20)
[2019-04-05] MEDS: NIACIN 500 MG TABLET.SA PO SCH (09:22)
[2019-04-05 10:50] VITALS: BP_SYST 142
[2019-04-05 11:26] VITALS: BP_SYST 139
--- NOTE | 2019-04-05 12:00 | NUR ---
D/C Patient Patient given medication reconciliation form and D/C instructions. Exit Care provided. Patient verbalized understanding. MD discussed with patient the results and treatment provided. Ambulatory with steady gait for discharge to home. Patient in stable condition, ID band removed. IV catheter removed, intact and dressing applied, no active bleeding. Rx given to pt. Patient educated on pain management. All belongings sent with patient.
[2019-04-06] MEDS ORDERED: GLIMEPIRIDE 2 MG TABLET PO SCH (07:00)
--- NOTE | 2019-04-17 12:21 | NUR ---
DISCHARGE FOLLOW UP PHONE CALL EZEQUIEL/ MARYLOU JOHNSON PHONED PATIENT, . WAS NOT ABLE TO GET A HOLD OF PATIENT. 3 CALLS WERE ATTEMPTED, LEFT 3 VOICEMAILS 04/10/19, 04/11/19, 04/17/19.
== END 2019-04-05 12:00 | disposition home or self-care (01) | DRG 757 ==
LOC: SED 20:38 → STU 04-03 00:41 → SMU 04-03 11:29
PROVIDERS: ADMIT Internal Medicine Hospice and Palliative Medicine; ATTEND Internal Medicine Hospice and Palliative Medicine
DX: B37.49 Other urogenital candidiasis (principal); J18.9 Pneumonia, unspecified organism; C64.9 Malignant neoplasm of unspecified kidney, except renal pelvis; C78.00 Secondary malignant neoplasm of unspecified lung; C79.51 Secondary malignant neoplasm of bone; E11.22 Type 2 diabetes mellitus with diabetic chronic kidney disease; E27.9 Disorder of adrenal gland, unspecified; E78.5 Hyperlipidemia, unspecified; I12.9 Hypertensive chronic kidney disease with stage 1 through stage 4 chronic kidney disease, or unspecified chronic kidney disease; K76.0 Fatty (change of) liver, not elsewhere classified; N18.9 Chronic kidney disease, unspecified; Z85.528 Personal history of other malignant neoplasm of kidney; Z87.09 Personal history of other diseases of the respiratory system; Z90.5 Acquired absence of kidney; Z79.899 Other long term (current) drug therapy; Z90.49 Acquired absence of other specified parts of digestive tract; N10 Acute pyelonephritis
CPT/HCPCS: 36415; 36600; 71045; 71250-TC; 80053; 81000-TC; 82803-TC; 82962; 83880; 84484; 85025; 85379; 85610-TC; 85730-TC; 87040-TC; 87086; 87186-TC; 93005; 93970; 94640; 96360; 99285; J0456; J0696; J1450; J7050; J7620; Q0162

== ENCOUNTER 2019-06-24 16:52 | Emergency (ER) | payer BC ==
[~2019-06-24] VITALS: Ht 170.2 cm; Wt 105.2 kg
[~2019-06-24 16:52] MED LIST changes: +AMLO5TAB4 PO; -ASPI-1153 PO; -FLUT16SP16 NS; +GABA-531 PO; -GLIP10TA3 PO; +INSU100I12 SQ; -INSU300I SQ; +LACT10SO6 PO; +METF1000 PO; -NIAC1CAP PO; +NIAC500T2 PO; +OMEG-143 PO; +RANI150T8 PO; +VITD2000 PO
[2019-06-24 17:03] VITALS: BP_SYST 164
[2019-06-24] MEDS ORDERED: HYDROcodone/ACETAMIN 5-325 MG TAB (NORCO/ VICODIN) PO ONE (17:45)
[2019-06-24] MEDS ORDERED: DIPHENHYDRAMINE INJ 50 MG/ML VIAL IM ONE (18:45)
[2019-06-24] MEDS ORDERED: MORPHINE SULFATE 10 MG/ML VIAL IM ONE (18:45)
[2019-06-24 19:13] VITALS: BP_SYST 152
== END 2019-06-24 19:13 | disposition home or self-care (01) ==
LOC: SED 16:52
DX: M84.421A Pathological fracture, right humerus, initial encounter for fracture (principal); M89.9 Disorder of bone, unspecified; I10 Essential (primary) hypertension; J45.909 Unspecified asthma, uncomplicated; E11.9 Type 2 diabetes mellitus without complications; Z79.4 Long term (current) use of insulin; Z79.899 Other long term (current) drug therapy
CPT/HCPCS: 73030; 73060; 96372; 99283; J1200; J2270

== ENCOUNTER 2022-02-10 19:59 | Inpatient (IN) | payer OTHER, MEDICAID ==
[~2022-02-10] VITALS: Ht 162.6 cm; Wt 99.3 kg
[~2022-02-10 19:59] MED LIST changes: +AXIT5TAB PO; -GABA-531 PO; -INSU100I12 SQ; +INSU100V SUBCUT; +INSU100V9 SUBCUT; -LACT10SO6 PO; +LEVO100C4 PO; -METF1000 PO; +METO-540 PO; -NIAC500T2 PO; -OMEG-143 PO; -ONDA4TAB5 PO; -RANI150T8 PO; +SIMV-46 PO; -SIMV40TA5 PO; -VITD2000 PO
[2022-02-10 20:00] VITALS: BP_SYST 141
[2022-02-10 20:38] LABS: BASOPHILS % (AUTO) 0.6 % (0.0-2.0); EOSINOPHILS # (AUTO) 0.2 K/uL (0.0-0.4); HEMATOCRIT 26.3 % (36-48); HEMOGLOBIN 8.8 g/dL (12.0-16.0); LYMPHOCYTES % (AUTO) 12.2 % (20.5-51.5); MEAN CORPUSCULAR HEMOGLOBIN 33 pg (27-31); MEAN CORPUSCULAR HGB CONC 33 % (32-36); MEAN CORPUSCULAR VOLUME 98 fL (79.0-98.0); MONOCYTES # (AUTO) 0.5 K/uL (0.0-1.0); NEUTROPHILS # (AUTO) 6.3 K/uL (1.8-7.7); NEUTROPHILS % (AUTO) 78.2 % (40.0-70.0); PLATELET COUNT (AUTO) 255 K/uL (130-430); RED BLOOD CELL COUNT(AUTO) 2.69 MIL/uL (4.2-6.2); WHITE BLOOD COUNT (AUTO) 8.1 K/uL (4.8-10.8)
[2022-02-10 20:50] LABS: INR 0.9 (0.8-1.2); PROTHROMBIN TIME 9.6 SECS (9.5-12.5)
[2022-02-10 21:11] LABS: ALANINE AMINOTRANSFERASE 9 U/L (12-78); ALBUMIN 2.9 g/dL (3.4-4.8); ANION GAP 12 (5-15); ASPARTATE AMINOTRANSFERASE 16 U/L (10-37); C-REACTIVE PROTEIN QUANT 4.9 mg/dL (0-0.5); CALCIUM 10.1 mg/dL (8.4-11.0); CHLORIDE 97 mmol/L (98-107); GLUCOSE 175 mg/dL (70-99); POTASSIUM 4.1 mmol/L (3.5-5.1); SODIUM SERUM 136 mmol/L (136-145); TOTAL BILIRUBIN 0.7 mg/dL (0.0-1.0); UREA NITROGEN, BLOOD 56 mg/dL (8-21)
[2022-02-10 21:12] LABS: ALCOHOL, BLOOD < 3 mg/dL (<10); CREATININE 8.14 mg/dL (0.55-1.30); GFR AFRICAN AMERICAN 6 mL/min (>90)
[2022-02-10 21:13] LABS: ACETAMINOPHEN < 1 ug/mL (1-30)
[2022-02-10 21:31] LABS: ACETONE, SERUM NEGATIVE (NEGATIVE)
[2022-02-10 22:47] LABS: BILIRUBIN,URINE NEGATIVE (NEGATIVE); BLOOD, URINE 2+ (NEGATIVE); CLARITY/URINE CLEAR (CLEAR); COLOR,URINE YELLOW (YELLOW); GLUCOSE,URINE TRACE (NEGATIVE); KETONES,URINE NEGATIVE (NEGATIVE); LEUKOCYTE ESTERASE ,URINE 3+ (NEGATIVE); NITRITE, URINE NEGATIVE (NEGATIVE); PROTEIN URINE 2+ (NEGATIVE); UROBILINOGEN,URINE 0.2 (0.2-1.0)
[2022-02-10 22:51] LABS: FREE T4 (FREE THYROXINE) 1.6 ng/dl (0.8-1.5); THYROID STIMULATING HORMONE 0.77 uIu/mL (0.36-3.74)
[2022-02-10] MEDS ORDERED: LORazepam 2 MG/ML VIAL IV ONE (23:00)
[2022-02-10 23:04] LABS: BARBITURATE, URINE NEGATIVE (NEG <=200); BENZODIAZEPINE, URINE NEGATIVE (NEG <=150); CANNABINOID, URINE NEGATIVE (NEG <=50); COCAINE, URINE NEGATIVE (NEG <=150); METHAMPHETAMINES SCREEN,URINE NEGATIVE (NEG <=500); OPIATE, URINE NEGATIVE (NEG <=100); PHENCYCLIDINE SCREEN,URINE NEGATIVE (NEG <=25); UR TRICYCLIC ANTIDEPRESSANTS NEGATIVE (NEG <=300); URINE AMPHETAMINE NEGATIVE (NEG <=500); URINE METHADONE NEGATIVE (NEG <=200); URINE OXYCODONE SCREEN NEGATIVE (NEG <=100); URINE PROPOXYPHENE SCREEN NEGATIVE (NEG <=300)
[2022-02-10 23:12] LABS: BACTERIA,URINE MODERATE /HPF (None Seen)
[2022-02-10] MEDS ORDERED: LORazepam 2 MG/ML VIAL ONE (23:22)
[2022-02-11] MEDS ORDERED: cefTRIAXone 1 GM IVPB PREMIX 50 ML IV ONE ×2 (00:15→06:07)
[2022-02-11 00:30] VITALS: BP_SYST 136
[2022-02-11 00:45] VITALS: BP_SYST 136
[2022-02-11 05:01] VITALS: BP_SYST 119
[2022-02-11 08:00] VITALS: BP_SYST 124
[2022-02-11 11:57] VITALS: BP_SYST 128
[2022-02-11 16:30] VITALS: BP_SYST 125
[2022-02-12 00:47] VITALS: BP_SYST 152
[2022-02-12] MEDS: cefTRIAXone 1 GM in D5W 50 ML IV SCH (07:53)
[2022-02-12 08:00] VITALS: BP_SYST 145
[2022-02-12 12:00] VITALS: BP_SYST 136
[2022-02-12 13:44] LABS: BASOPHILS # (AUTO) 0.2 K/uL (0.0-0.2); BASOPHILS % (AUTO) 2.3 % (0.0-2.0); EOSINOPHILS # (AUTO) 0.3 K/uL (0.0-0.4); EOSINOPHILS % (AUTO) 3.6 % (0.0-4.0); HEMATOCRIT 25.5 % (36-48); HEMOGLOBIN 8.5 g/dL (12.0-16.0); LYMPHOCYTES # (AUTO) 0.8 K/uL (1.0-5.5); LYMPHOCYTES % (AUTO) 10.4 % (20.5-51.5); MEAN CORPUSCULAR HEMOGLOBIN 33 pg (27-31); MEAN CORPUSCULAR HGB CONC 33 % (32-36); MEAN CORPUSCULAR VOLUME 98 fL (79.0-98.0); MONOCYTES # (AUTO) 0.4 K/uL (0.0-1.0); MONOCYTES % (AUTO) 5.5 % (1.7-9.3); NEUTROPHILS # (AUTO) 5.9 K/uL (1.8-7.7); NEUTROPHILS % (AUTO) 78.2 % (40.0-70.0); PLATELET COUNT (AUTO) 244 K/uL (130-430); RED BLOOD CELL COUNT(AUTO) 2.59 MIL/uL (4.2-6.2); RED CELL DISTRIBUTION WIDTH 16.1 % (9.0-15.0); WHITE BLOOD COUNT (AUTO) 7.5 K/uL (4.8-10.8)
[2022-02-12 13:50] LABS: CALCIUM 9.1 mg/dL (8.4-11.0); POTASSIUM 4.2 mmol/L (3.5-5.1)
[2022-02-12 13:57] LABS: ALBUMIN 2.7 g/dL (3.4-4.8); TOTAL BILIRUBIN 0.6 mg/dL (0.0-1.0)
[2022-02-12 14:24] LABS: CREATININE 10.78 mg/dL (0.55-1.30)
[2022-02-12 16:00] VITALS: BP_SYST 147
[2022-02-12] MEDS: D5/0.45 NS 1,000 ML IV SCH (18:19)
[2022-02-12 20:00] VITALS: BP_SYST 171
[2022-02-12] MEDS: INSULIN REGULAR, HUMAN 100 UNITS/ML, 10 ML VIAL (humuLIN R) SUBCUT PRN (23:12)
[2022-02-13 00:30] VITALS: BP_SYST 151
[2022-02-13] MEDS: INSULIN REGULAR, HUMAN 100 UNITS/ML, 10 ML VIAL (humuLIN R) SUBCUT PRN ×2 (05:52→12:57)
[2022-02-13] MEDS: cefTRIAXone 1 GM in D5W 50 ML IV SCH (07:05)
[2022-02-13 08:00] VITALS: BP_SYST 125
[2022-02-13 12:00] VITALS: BP_SYST 127
[2022-02-13] MEDS: D5/0.45 NS 1,000 ML IV SCH (12:00)
[2022-02-13] MEDS ORDERED: VANCOMYCIN HCL 1,000 MG in NS 250 ML IV ONE (15:00)
[2022-02-13 16:00] VITALS: BP_SYST 115
[2022-02-13 20:00] VITALS: BP_SYST 126
[2022-02-14] VITALS: BP_SYST 132
[2022-02-14] MEDS: INSULIN REGULAR, HUMAN 100 UNITS/ML, 10 ML VIAL (humuLIN R) SUBCUT PRN ×2 (06:01→13:36)
[2022-02-14 06:55] LABS: BASOPHILS # (AUTO) 0.1 K/uL (0.0-0.2); BASOPHILS % (AUTO) 0.8 % (0.0-2.0); EOSINOPHILS # (AUTO) 0.3 K/uL (0.0-0.4); EOSINOPHILS % (AUTO) 2.8 % (0.0-4.0); HEMATOCRIT 26.8 % (36-48); LYMPHOCYTES # (AUTO) 0.7 K/uL (1.0-5.5); LYMPHOCYTES % (AUTO) 7.9 % (20.5-51.5); MEAN CORPUSCULAR HEMOGLOBIN 33 pg (27-31); MEAN CORPUSCULAR HGB CONC 34 % (32-36); MEAN CORPUSCULAR VOLUME 98 fL (79.0-98.0); MONOCYTES # (AUTO) 0.8 K/uL (0.0-1.0); MONOCYTES % (AUTO) 8.3 % (1.7-9.3); NEUTROPHILS # (AUTO) 7.5 K/uL (1.8-7.7); NEUTROPHILS % (AUTO) 80.2 % (40.0-70.0); PLATELET COUNT (AUTO) 211 K/uL (130-430); RED BLOOD CELL COUNT(AUTO) 2.75 MIL/uL (4.2-6.2); RED CELL DISTRIBUTION WIDTH 15.8 % (9.0-15.0); WHITE BLOOD COUNT (AUTO) 9.3 K/uL (4.8-10.8)
[2022-02-14 07:14] LABS: CALCIUM 9.4 mg/dL (8.4-11.0)
[2022-02-14] MEDS: cefTRIAXone 1 GM in D5W 50 ML IV SCH (07:23)
[2022-02-14] MEDS: D5/0.45 NS 1,000 ML IV SCH (07:23)
[2022-02-14 08:00] VITALS: BP_SYST 133; BP_SYST 95
[2022-02-14 09:13] LABS: VANCOMYCIN,RANDOM 17.3 ug/mL
[2022-02-14 12:00] VITALS: BP_SYST 100; BP_SYST 107
[2022-02-14] MEDS ORDERED: ROCPM1 IV (16:33)
[2022-02-14] MEDS ORDERED: HEPARIN IV FLUSH 300 UNITS/3ML SYR INJ ONE (17:00)
[2022-02-14] MEDS ORDERED: HEPARIN SODIUM,PORCINE 5,000 UNITS/ML VIAL ONE (17:05)
[2022-02-14] MEDS ORDERED: HEPARIN SODIUM,PORCINE 5,000 UNITS/ML VIAL MC ONE (18:00)
[2022-02-14 20:00] VITALS: BP_SYST 115
[2022-02-14 20:07] VITALS: BP_SYST 100
== END 2022-02-14 21:00 | DRG 871 ==
LOC: SED 19:59 → STU 22:53
PROVIDERS: ADMIT Internal Medicine; ATTEND Internal Medicine
PROC: 5A1D70Z Performance of Urinary Filtration, Intermittent, Less than 6 Hours Per Day (ICD-10-PCS; principal; 2022-02-12)
DX: A41.9 Sepsis, unspecified organism (principal); G93.41 Metabolic encephalopathy; N18.6 End stage renal disease; N39.0 Urinary tract infection, site not specified; I12.0 Hypertensive chronic kidney disease with stage 5 chronic kidney disease or end stage renal disease; E03.9 Hypothyroidism, unspecified; E11.22 Type 2 diabetes mellitus with diabetic chronic kidney disease; D63.1 Anemia in chronic kidney disease; Z20.822 Contact with and (suspected) exposure to COVID-19; E66.9 Obesity, unspecified; J44.9 Chronic obstructive pulmonary disease, unspecified; Z86.73 Personal history of transient ischemic attack (TIA), and cerebral infarction without residual deficits; Z79.82 Long term (current) use of aspirin; Z99.2 Dependence on renal dialysis; Z79.899 Other long term (current) drug therapy; Z68.37 Body mass index [BMI] 37.0-37.9, adult
CPT/HCPCS: 36415; 70450-TC; 70551; 71045; 76376; 80048; 80053; 80202; 80307; 81000; 82009; 82140; 82550; 82803-TC; 82962; 83605; 83880; 84439; 84443; 85025; 85610-TC; 85730-TC; 86140; 87040; 87081; 90935; 92610-GN; 93005; 96374; 99285; G0378; G0480; G0481; G0482; J0696; J1644; J1815; J2060; J3370; J7050; J7060